=== PATIENT | female | born 1980 | race African-American/Black ===

== ENCOUNTER 2017-07-16 15:02 | Emergency (ER) | payer OTHER ==
[~2017-07-16] VITALS: Ht 170.2 cm; Wt 90.0 kg
[2017-07-16] MEDS ORDERED: HYDROCODONE/ACETAMINOPHEN 5/325MG TABLET PO ONE (17:00)
[2017-07-16 17:39] LABS: CHLORIDE 106 mEq/L (98-107)
[2017-07-16 17:42] LABS: PARTIAL THROMBOPLASTIN TIME 27.2 sec (23.4-31.0); PROTHROMBIN TIME 10.7 sec (9.4-11.6)
[2017-07-16 17:45] LABS: HCG SCREEN NEGATIVE
[2017-07-16 17:48] LABS: BASOPHILS % 0.3 % (0.0-2.0); CARBON DIOXIDE 28 mEq/L (21-32); EOSINOPHILS % 1.2 % (0.0-5.0); HEMOGLOBIN. 11.5 g/dL (12.0-16.0); MEAN CORPUSCULAR HEMOGLOBIN 27.1 pg (28.0-32.0); MEAN CORPUSCULAR VOLUME 82.6 fL (81.0-99.0); MEAN PLATELET VOLUME 7.9 fl (7.4-10.4); MONOCYTES % 5.3 % (2.0-8.0); NEUTROPHILS % 77.2 % (40.0-76.0); PLATELET 299 x1000/uL (130-400); RED BLOOD CELL COUNT 4.23 mill/uL (4.2-5.4)
[2017-07-16] MEDS ORDERED: CLONIDINE 0.1MG TABLET PO ONE (20:00)
[2017-07-16] MEDS ORDERED: LIDOCAINE HCL 1% 20ML VIAL (Pyxis) INJ INFIL ONE (20:45)
[2017-07-16] MEDS ORDERED: HYDROCODONE/ACETAMINOPHEN 10/325MG TABLET PO ONE (21:15)
[2017-07-16 23:10] VITALS: BP 132/67
== END 2017-07-16 23:14 | disposition home or self-care (01) ==
LOC: ER 15:13
DX: S52.501A Unspecified fracture of the lower end of right radius, initial encounter for closed fracture (principal); S01.81XA Laceration without foreign body of other part of head, initial encounter; I10 Essential (primary) hypertension; V49.88XA Car occupant (driver) (passenger) injured in other specified transport accidents, initial encounter; W22.11XA Striking against or struck by driver side automobile airbag, initial encounter; Y93.89 Activity, other specified; Y92.89 Other specified places as the place of occurrence of the external cause; Y99.8 Other external cause status
CPT/HCPCS: 12011; 29125; 36415; 73060; 73080; 73090; 73110; 80053; 84703; 85025; 85610; 85730; 99285; J3490; Z7610; A4565